=== PATIENT | female | born 1955 | race African-American/Black ===

== ENCOUNTER 2019-11-26 13:02 | Emergency (ER) | payer MEDICAID, OTHER ==
[~2019-11-26] VITALS: Ht 167.6 cm; Wt 68.0 kg
[~2019-11-26 13:02] MED LIST: [UNRECOGNIZED DRUG - OTHER]
[2019-11-26] MEDS ORDERED: SODIUM CHLORIDE 0.9% 1,000 ML IV ONE ×2 (13:13→17:45)
[2019-11-26 13:57] LABS: CHLORIDE 109 mEq/L (98-107)
[2019-11-26 14:03] LABS: PROTHROMBIN TIME 10.9 sec (9.6-11.0)
[2019-11-26 14:23] LABS: CLARITY URINE CLOUDY (CLEAR); COLOR URINE DARK YELLOW (YELLOW); KETONES URINE TRACE (NEGATIVE); LEUKOCYTE ESTERASE URINE 1+ (NEGATIVE); NITRITE URINE NEGATIVE (NEGATIVE); OCCULT BLOOD URINE NEGATIVE (NEGATIVE); PH URINE 5.5 (4.5-8.0); PROTEIN URINE 2+ (NEGATIVE); SPECIFIC GRAVITY URINE 1.033 (1.005-1.030)
[2019-11-26 15:16] LABS: HEMATOCRIT. 28.4 % (36.0-48.0); HEMOGLOBIN. 9.9 g/dL (12.0-16.0); MEAN CORPUSCULAR HEMOGLOBIN 30.5 pg (28.0-32.0); MEAN CORPUSCULAR VOLUME 87.4 fL (81.0-99.0); MEAN PLATELET VOLUME 9.2 fl (7.4-10.4); PLATELET 243 x1000/uL (130-400); RED BLOOD CELL COUNT 3.24 mill/uL (4.2-5.4); RED CELL DISTRIBUTION WIDTH 17.3 % (11.6-14.6)
[2019-11-26] MEDS ORDERED: POTASSIUM CHLORIDE 20MEQ TABLET SR PO ONE (15:30)
[2019-11-26 15:45] LABS: PLATELET ESTIMATE NORMAL
[2019-11-26 18:39] VITALS: BP 114/59
== END 2019-11-26 19:23 | disposition short-term general hospital (02) ==
LOC: ER 13:24 → EDBEDREQTM 15:20 → EDBEDREQ 15:20 → ER 19:23 → CANBEDREQ 11-27 14:14
DX: R55 Syncope and collapse (principal); I10 Essential (primary) hypertension; F41.9 Anxiety disorder, unspecified; M19.90 Unspecified osteoarthritis, unspecified site; Z85.79 Personal history of other malignant neoplasms of lymphoid, hematopoietic and related tissues; Z92.21 Personal history of antineoplastic chemotherapy
CPT/HCPCS: 36415; 71045; 80053; 81003; 83605; 83880; 84484; 85025; 85610; 93005; 96360; 96361; 99285; J7030